=== PATIENT | male | born 1965 | race Caucasian/White ===

== ENCOUNTER → 2025-04-21 | Outpatient (CLI) | payer MEDICAID, SELFPAY ==
--- NOTE | 2025-04-21 15:37 | XR_ITS ---
Examination: Bilateral hands, 6 views. Technique: AP, Oblique, Lateral each hand total 6 views Date and time of exam: April 21, 2025, 1559 hours INDICATIONS: Bilateral hand pain 1 year. FINDINGS: Mild diffuse narrowing joints of the wrist and hand bilaterally No erosive arthritis or other significant arthritic change Mild bilateral osteoarthritis first carpometacarpal joint No fractures IMPRESSION: Mild diffuse narrowing joints of the wrist and hand bilaterally No erosive or other significant arthritic change
--- NOTE | 2025-04-21 15:37 | XR_ITS ---
EXAMINATION: Bilateral wrist 6 views TECHNIQUE: AP oblique lateral each wrist total 6 views Bilateral wrist pain months FINDINGS: Mild narrowing radiocarpal and first carpal metacarpal joints bilaterally No fractures No avascular necrosis No dislocations IMPRESSION: Mild narrowing radiocarpal and first carpal metacarpal joints bilaterally
== END | disposition home or self-care (01) ==
LOC: CDIM 15:28
PROVIDERS: PCP Internal Medicine Hospice and Palliative Medicine; Referring Provider Nurse Practitioner Gerontology; Visit Provider Nurse Practitioner Gerontology
DX: M25.842 Other specified joint disorders, left hand (principal); M25.841 Other specified joint disorders, right hand; M25.832 Other specified joint disorders, left wrist; M25.831 Other specified joint disorders, right wrist
CPT/HCPCS: 73110; 73130